=== PATIENT | female | born 1975 | race Two or more races ===

== ENCOUNTER 2024-05-31 19:11 | Emergency (ER) | payer MEDICAID, SELFPAY ==
[2024-05-31 19:12] VITALS: BMI 36.6
--- NOTE | 2024-05-31 19:15 | EKG_ITS ---
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
[2024-05-31 19:55] VITALS: BP 122/57; PULSE 69; RESP 19; TEMP 37; O2SAT 98
--- NOTE | 2024-05-31 20:05 | XR_ITS ---
Examination: PA lateral chest 2 views Technique: Upright PA lateral chest 2 views Exam date and time: May 31, 20242021 hrs. Indications: Chest pain today. Findings: Normal heart size. Lungs are clear. Osseous structures are intact Impression: No active disease
--- NOTE | 2024-05-31 20:05 | PD.EDRME ---
Rapid Medical Screening Exam RME Arrival date/time: 05/31/24 19:11 48-year-old female presents emergency department complaining of chest pain and chest pressure with cough that been ongoing for 1 week. Chief Complaint: General Adult/Misc Complain Time Seen by Provider: 05/31/24 20:00 Vital signs: Vital Signs Temperature 98.6 F 05/31/24 19:55 Pulse Rate 69 05/31/24 19:55 Respiratory Rate 19 05/31/24 19:55 Blood Pressure 122/57 L 05/31/24 19:55 Pulse Oximetry (%) 98 05/31/24 19:55 Oxygen Delivery Method Room Air 05/31/24 19:55 Vital signs reviewed by provider: Yes
[2024-05-31 20:33] LABS: Collection Type, Urine Clean Catch
[2024-05-31 20:34] LABS: Basophils # (Auto) 0.1 Thou/mm3 (0.0-0.2); Basophils % (Auto) 0 % (0-2.5); Eosinophils # (Auto) 0.8 Thou/mm3 (0.0-0.5); Eosinophils % (Auto) 6 % (0-10); Hematocrit 34.8 % (36.0-46.0); Hemoglobin 10.8 g/dL (12.0-16.0); Immature Granulocytes % (Auto) 0 % (0-0); Immature Granulocytes Auto 0.03 Thou/mm3 (0.00-0.00); Lymphocytes # (Auto) 4.7 Thou/mm3 (1.0-4.8); Lymphocytes % (Auto) 31 % (10-50); Mean Corpuscular Hemoglobin 23.5 pg (25.0-35.0); Mean Corpuscular Volume 76 fL (80-100); Monocytes # (Auto) 0.7 Thou/mm3 (0.0-0.8); Monocytes % (Auto) 5 % (0-12); Neutrophils # (Auto) 8.6 Thou/mm3 (1.8-7.7); Neutrophils % (Auto) 58 % (37-80); Nucleated Red Blood Cell % 0 /100 WBC (0); Platelet Count 419 Thou/mm3 (140-440); RDW Standard Deviation 42.1 fL (36.4-46.3); Red Blood Count 4.59 Miln/mm3 (4.00-5.20); White Blood Count 14.8 Thou/mm3 (3.6-11.0)
[2024-05-31 20:37] LABS: Bilirubin,Urine Negative (Negative); Blood,Urine Negative (Negative); Clarity,Urine Clear (Clear/Hazy); Color,Urine Lt-Yellow (Lt Yel-Yel); Glucose, Urine Negative (Negative); Ketones,Urine Negative (Negative); Leukocyte Esterase,Urine Negative (Negative); Nitrite,Urine Negative (Negative); Protein,Urine Trace (Neg - Trace); RBC,Urine 5 /hpf (0-3); Squamous Epithelial Cell,Urine 1 /hpf (0-5); WBC,Urine 1 /hpf (0-5)
[2024-05-31 20:46] LABS: Amphetamine/Methamp Scrn,U Negative (Negative); Barbiturate Screen,Urine Negative (Negative); Benzodiazepines Screen,Urine Negative (Negative); Benzoylecgonine Screen, Ur Negative (Negative); Fentanyl Screen,Urine Negative (Negative); Opiate Screen,Urine Negative (Negative); THC Screen,Urine Negative (Negative)
[2024-05-31 20:51] LABS: INR 1.1 (0.9-1.3); Partial Thromboplastin Time 29.1 Seconds (22.0-36.0); Prothrombin Time 11.5 Seconds (9.0-12.2)
[2024-05-31 20:53] LABS: B-Type Natriuretic Peptide < 20 pg/mL (0-100)
[2024-05-31 20:54] LABS: Alanine Aminotransferase 68 U/L (10-49); Albumin, Serum 4.7 gm/dL (3.5-5.0); Albumin/Globulin Ratio 1.2 (1.2-2.2); Alkaline Phosphatase 137 U/L (46-116); Anion Gap 6 (7-16); Aspartate Amino Transferase 64 U/L (0-34); BUN/Creatinine Ratio 22 Ratio (12-20); Bilirubin,Total 0.3 mg/dL (0.3-1.2); Blood Urea Nitrogen 13 mg/dL (9-23); Calcium 10.2 mg/dL (8.3-10.6); Calcium (Corrected) 10.2 mg/dL (8.5-10.1); Carbon Dioxide 27.2 mMol/L (20.0-31.0); Chloride 105 mMol/L (98-107); Creatinine (Component) 0.6 mg/dL (0.6-1.3); Estimated Creatinine Clearance 117.5 mL/min (>60); Globulin 3.9 gm/dL (2.3-3.5); Glucose 107 mg/dL (74-106); Magnesium 2.3 mg/dL (1.6-2.6); Osmolality,Calculated 275 (275-295); Potassium 4.4 mMol/L (3.4-5.1); Sodium 138 mMol/L (136-145); Total Protein 8.6 gm/dL (5.7-8.2); Troponin I < 0.002 ng/mL (0.0-0.045); eGFR > 60 See Note
[2024-05-31 21:18] VITALS: BP 113/53; PULSE 73; RESP 17; TEMP 37; O2SAT 96
--- NOTE | 2024-05-31 22:19 | EDNOTE_ITS ---
<Statement entered by Abby Ponce MD - 06/08/24 17:45> As co-signing physician, I was present and available for consult prn. I concur with the plan and care as documented by the midlevel provider. ED General RME/HPI General Chief complaint: General Adult/Misc Complain Stated complaint: COUGHING, CHEST AREA PAIN, LOWER BACK PAIN Time Seen by Provider: 05/31/24 20:00 Arrival date/time: 05/31/24 19:11 This is a 48-year-old female that comes in with complaints of cough since March. Patient states that she was given antibiotics, a Z-Chandana and promethazine. Patient states that the cough still has not gone away. Patient was also diagnosed with a ear infection at that time. Patient no longer has complaints of ear pain but complains of a sore throat, cough, and congestion. Patient also complains of left flank pain that got worse today. Patient denies any urinary symptoms. Patient denies fever, chills, nausea, vomiting, diarrhea. Patient denies any past medical history. RME / HPI RME / HPI narrative: 05/31/24 19:11 48-year-old female presents emergency department complaining of chest pain and chest pressure with cough that been ongoing for 1 week. Related Data Previous Rx's ?Medication ?Instructions ?Recorded acetaminophen 300 mg-codeine 30 mg 1 tab PO Q6H PRN pain #20 tabs 11/06/22 tablet albuterol sulfate 90 mcg/actuation 2 puff inhalation Q6H PRN 05/31/24 aerosol inhaler shortness of breath or wheezing #8.5 grams ibuprofen 800 mg tablet 800 mg PO Q8H PRN pain #14 tabs 05/31/24 Allergies Allergy/AdvReac Type Severity Reaction Status Date / Time latex Allergy Mild SKIN TURNS Verified 11/06/22 07:18 RED, RASH Review of Systems Review of Systems Systems Reviewed: All systems reviewed, normal except as documented Past Medical History Past Medical History NEUROLOGIC: Negative Neurological Disorders CARDIAC: Negative Cardiac Disorders or Congestive Heart Failure RESPIRATORY: Negative Chronic Obstructive Pulmonary Disease (COPD) or Asthma GASTROINTESTINAL: Negative Gastrointestinal Disorders GENITOURINARY: Negative Genitourinary Disorders or Renal Disease REPRODUCTIVE: Positive Previous Pregnancies ENDOCRINE: Negative Endocrine Disorders, Diabetes Mellitus Type 1 or Diabetes Mellitus Type 2 HEMATOLOGIC: Negative Blood Disorders or Sickle Cell Disease Social History SMOKING STATUS: Never smoker Travel History EBOLA RISK: No ED Exam General General appearance: Present alert and in no apparent distress Head Head exam: Present atraumatic Eye Eye exam: Present normal appearance, PERRL and EOMI ENT ENT exam: Present normal exam, normal oropharynx and mucous membranes moist Neck Neck exam: Present normal inspection, full ROM and trachea midline Chest Chest inspection: Present normal inspection and symmetric chest wall rise Respiratory Respiratory exam: Present normal lung sounds bilaterally Cardiovascular Cardiovascular exam: Present regular rate, normal rhythm and normal heart sounds Abdominal Exam Abdominal exam: Present soft and other (No pain to light palpation, cva tenderness to left flank area ) Extremities Exam Extremities exam: Present normal inspection and full ROM Back Exam Back exam: Present normal inspection and full ROM Neurological Exam Neurological exam: Present alert, oriented X3 and CN II-XII intact Psychiatric Psychiatric exam: Present normal affect and normal mood Skin Skin exam: Present warm, dry, intact and normal color Course Quality Measures none Orders Category Date Time Status Bedside COVID-19 Antigen Test NOW Care 05/31/24 20:05 Completed Bedside Influenza A&B Antigen Test NOW Care 05/31/24 20:05 Completed EKG (ED ONLY) *Do not use* NOW Care 05/31/24 19:[address] abdomen pelvis wo con Stat Exams 05/31/24 22:28 Completed EKG (ED Only) Stat Exams 05/31/24 19:15 Draft XR chest 2V Stat Exams 05/31/24 20:05 Completed B-Type Natriuretic Peptide Stat Lab 05/31/24 20:12 Completed CBC Stat Lab 05/31/24 20:12 Completed Comprehensive Metabolic Panel Stat Lab 05/31/24 20:12 Completed Drug Screen,Urine Stat Lab 05/31/24 20:21 Completed Magnesium Stat Lab 05/31/24 20:12 Completed Partial Thromboplastin Time Stat Lab 05/31/24 20:12 Completed Prothrombin Time with INR Stat Lab 05/31/24 20:12 Completed Strep A Rapid Stat Lab 05/31/24 22:15 Completed Troponin I Stat Lab 05/31/24 20:12 Completed Urinalysis Stat Lab 05/31/24 20:21 Completed Acetaminophen Tab [Tylenol ES Tab] Med 05/31/24 23:14 Discontinued 1,000 mg PO X1 ONE Ketorolac Inj [Toradol Inj] Med 05/31/24 22:29 Discontinued 60 mg IM X1 ONE Promethazine/Dextromethorph [Phenergan Dm Syrup] Med 05/31/24 23:14 Discontinued 5 ml PO X1 ONE Vital Signs Vital signs: Vital Signs Temperature 98.6 F 05/31/24 19:55 Pulse Rate 69 05/31/24 19:55 Respiratory Rate 19 05/31/24 19:55 Blood Pressure 122/57 L 05/31/24 19:55 Pulse Oximetry (%) 98 05/31/24 19:55 Oxygen Delivery Method Room Air 05/31/24 19:55 Procedures -ED EKG Interpretation #1: Date of EK05/31/24 Time of EK:53 Rate: 70 Interpretation: Interpreted by me (sinus rhythm ) EKG Impression: No ectopy, Normal QRS and Normal intervals MDM Patient data External records reviewed:: [facility] previous records Clinical information provided by:: patient Social determinants that could affect healthcare access:: none Patient has the following chronic illnesses:: none How is presenting disease/condition affected by chronic disease/condition?: no chronic disease Evaluation data The following diagnostics were reviewed and interpreted by me:: lab results, radiology exam(s) and EKG tracing(s) Lab and/or radiology exams considered but not ordered:: none Interpretation Summary: none Medications Medications considered but not ordered:: none Medication administrations:: Medication Administration History Discontinued Medications Acetaminophen (Acetaminophen 500 Mg Tablet) 1,000 mg PO X1 ONE Stop: 05/31/24 23:15 Last Admin: 05/31/24 23:33 Dose: 1,000 mg Documented By: KEN Ketorolac Tromethamine (Ketorolac Inj 60 Mg/2 Ml Vial) 60 mg IM X1 ONE Stop: 05/31/24 22:30 Last Admin: 05/31/24 23:21 Dose: 60 mg Documented By: KEN Promethazine HCl/Dextromethorphan (Promethazine/Dm Syrup 5 Ml Dose) 5 ml PO X1 ONE; Protocol Stop: 05/31/24 23:15 Last Admin: 05/31/24 23:33 Dose: 5 ml Documented By: KEN garcia Consultations Consultation(s) initiated? (list below): No Diagnosis Differential Diagnosis ED Complaint MDM: viral illness, pneumonia, reactive airway disease Most likely diagnosis given after review of the tests above:: reactive airway disease Admission Indicated Admission indicated?: not indicated Explain why admission is indicated or not indicated:: pt better Admission Request Was there a request for admission?: No Disposition Plan Disposition Plan: Discharge Discharge Attestation Discharge Attestation: The patient and all family members were given an opportunity to ask questions and understood the discharge instructions. Discharge instructions specifically effects, indications for sooner follow up or return to the emergency department, and the expected course of current diagnosis. Patient condition: Stable Medical Decision Making MDM Narrative MDM Narrative: chest x ray: Findings: Normal heart size. Lungs are clear. Osseous structures are intact Impression: No active disease ct abdomen and pelvis: Findings: Diffuse fatty infiltration throughout the liver no focal liver lesions No gallstones No pancreatic or adrenal mass No renal or ureteral calculi, no hydronephrosis Aorta normal size Normal appendix No bowel obstruction No diverticulitis Anteverted uterus No bladder mass or bladder calculi The osseous structures are intact Impression: No renal or ureteral calculi, no hydronephrosis Normal appendix No bladder mass or bladder calculi Labs showed a white count of 14.8, hemoglobin and hematocrit of 10.8 and 34.8. PT PT/INR negative comprehensive metabolic panel showed elevated LFTs AST of 64 ALT of 68 and alk phos of 137. Urine shows RBCs in urine. Patient's COVID and influenza were negative. Strep was negative Patient was given Toradol for pain along with tylenol. Pt given promethazine. She reports feeling better. Pt told to folloow up with primary provider in 1-2 days. Differential Diagnosis Differential Diagnosis: viral illness, pneumonia, reactive airway disease Lab Data 05/31/24 20:12 05/31/24 20:12 Labs: Lab Results 05/31/24 05/31/24 05/31/24 Range/Units 20:12 20:21 22:15 WBC 14.8 H (3.6-11.0) Thou/mm3 RBC 4.59 (4.00-5.20) Miln/mm3 Hgb 10.8 L (12.0-16.0) g/dL Hct 34.8 L (36.0-46.0) % MCV 76 L (80-100) fL MCH 23.5 L (25.0-35.0) pg MCHC 31.0 (31.0-37.0) g/dl RDW Std Deviation 42.1 (36.4-46.3) fL Plt Count 419 (140-440) Thou/mm3 Neut % (Auto) 58 (37-80) % Lymph % (Auto) 31 (10-50) % [place] % (Auto) 5 (0-12) % Eos % (Auto) 6 (0-10) % Baso % (Auto) 0 (0-2.5) % Neut # (Auto) 8.6 H (1.8-7.7) Thou/mm3 Lymph # (Auto) 4.7 (1.0-4.8) Thou/mm3 [place]ick # (Auto) 0.7 (0.0-0.8) Thou/mm3 Eos # (Auto) 0.8 H (0.0-0.5) Thou/mm3 Baso # (Auto) 0.1 (0.0-0.2) Thou/mm3 Immature Gran # (Auto) 0.03 H (0.00-0.00) Thou/mm3 Absolute Nucleated RBC 0.00 (0.00-0.00) Thou/mm3 Immature Gran % 0 (0-0) % Nucleated RBC % 0 (0) /100 WBC PT 11.5 (9.0-12.2) Seconds INR 1.1 (0.9-1.3) APTT 29.1 (22.0-36.0) Seconds Sodium 138 (136-145) mMol/L Potassium 4.4 (3.4-5.1) mMol/L Chloride 105 (98-107) mMol/L Carbon Dioxide 27.2 (20.0-31.0) mMol/L Anion Gap 6 L (7-16) BUN 13 (9-23) mg/dL Creatinine 0.6 (0.6-1.3) mg/dL Estim Creat Clear Calc 117.5 (>60) mL/min eGFR > 60 (60 - ) See Note BUN/Creatinine Ratio 22 H (12-20) Ratio Glucose 107 H (74-106) mg/dL Calculated Osmolality 275 (275-295) Calcium 10.2 (8.3-10.6) mg/dL Corrected Calcium 10.2 H (8.5-10.1) mg/dL Magnesium 2.3 (1.6-2.6) mg/dL Total Bilirubin 0.3 (0.3-1.2) mg/dL AST 64 H (0-34) U/L ALT 68 H (10-49) U/L Alkaline Phosphatase 137 H (46-116) U/L Troponin I < 0.002 (0.0-0.045) ng/mL B-Natriuretic Peptide < 20 (0-100) pg/mL Total Protein 8.6 H (5.7-8.2) gm/dL Albumin 4.7 (3.5-5.0) gm/dL Globulin 3.9 H (2.3-3.5) gm/dL Albumin/Globulin Ratio 1.2 (1.2-2.2) Ur Collection Type Clean Catch Urine Color Lt-Yellow (Lt Yel-Yel) Urine Clarity Clear (Clear/Hazy) Urine pH 6.0 (5.0-7.0) Ur Specific [place] 1.030 (1.001-1.035) Urine Protein Trace (Neg - Trace) Urine Glucose (UA) Negative (Negative) Urine Ketones Negative (Negative) Urine Blood Negative (Negative) Urine Nitrite Negative (Negative) Urine Bilirubin Negative (Negative) Urine Urobilinogen (Auto) 2.0 (0.0-1.0) mg/dL Ur Leukocyte Esterase Negative (Negative) Urine RBC 5 H (0-3) /hpf Urine WBC 1 (0-5) /hpf Ur Squamous Epith Cells 1 (0-5) /hpf Urine Bacteria None (None) Urine Opiates Screen Negative (Negative) Urine Fentanyl Screen Negative (Negative) Ur Barbiturates Screen Negative (Negative) U Amphetamin/Meth Scrn Negative (Negative) U Benzodiazepines Scrn Negative (Negative) U Cocaine Metab Screen Negative (Negative) U Marijuana (THC) Screen Negative (Negative) Group A Strep Rapid Negative (Negative) Discharge Plan Plan Patient Disposition: HOME (Self Care) Patient condition on transfer: Stable Prescriptions/Referrals Prescriptions/Med Rec: New ibuprofen 800 mg tablet 800 mg PO Q8H PRN (Reason: pain) Qty: 14 0RF albuterol sulfate 90 mcg/actuation HFA aerosol inhaler 2 puff inhalation Q6H PRN (Reason: shortness of breath or wheezing) Qty: 8.5 0RF No Action acetaminophen-codeine 300-30 mg tablet 1 tab PO Q6H MDD 4 PRN (Reason: pain) Qty: 20 0RF Referrals: Vinning,Amita, PA-C [Primary Care Provider] - In 1 week Problem List Clinical Impression: Upper respiratory infection, viral, Hematuria, RAD (reactive airway disease) Patient/Caregiver Discharge Instructions Discharge Activity: activity as tolerated Education Materials: ED Hematuria, ED URI, Viral, No Abx (Adult) Additional Instructions: Plenty of fluids. Can use inhaler as directed. Follow-up with primary provider in 1 to 2 days. Come back to the emergency room if symptoms change or worsen. Print Language: Wallisian Stand Alone Forms: Anabel Award Info., Patient Portal Info Letter PA/PRESS MACHINE FEEDER Supervising Physician PA/PRESS MACHINE FEEDER Supervising Physician: shannan
--- NOTE | 2024-05-31 22:28 | XR_ITS ---
Examination: CT abdomen and pelvis without contrast. Coronal 3-D reconstructions. Sagittal 2-D reconstructions. Date and time of exam:May 31, 2024 11:11 PM Indications: Lower back chest and flank pain 2 weeks CTDI: vol (mGy): 14.11 DLP: (mGycm): 820 Technique: Axial images of the abdomen have been obtained, 3 mm slice thickness Intravenous contrast material has not been administered. Low dose protocols were performed. One or more of the following dose reduction techniques were used; automated exposure control, adjustment of the mA and/or KV according to patient size, use of iterative reconstruction technique. Findings: Diffuse fatty infiltration throughout the liver no focal liver lesions No gallstones No pancreatic or adrenal mass No renal or ureteral calculi, no hydronephrosis Aorta normal size Normal appendix No bowel obstruction No diverticulitis Anteverted uterus No bladder mass or bladder calculi The osseous structures are intact Impression: No renal or ureteral calculi, no hydronephrosis Normal appendix No bladder mass or bladder calculi
[2024-05-31 22:30] LABS: Strep A Rapid Negative (Negative)
[2024-05-31] MEDS: KETOROLAC INJ 60 MG/2 ML VIAL IM (23:21)
[2024-05-31] MEDS: ACETAMINOPHEN 500 MG TABLET 1000 MG PO (23:33)
[2024-05-31] MEDS: PROMETHAZINE/DM SYRUP 5 ML DOSE PO (23:33)
== END 2024-06-01 00:53 | disposition home or self-care (01) ==
PROVIDERS: Emergency Provider Emergency Medicine; PCP Physician Assistant
DX: J06.9 Acute upper respiratory infection, unspecified (principal); J45.909 Unspecified asthma, uncomplicated; R31.9 Hematuria, unspecified; R10.9 Unspecified abdominal pain; M54.50 Low back pain, unspecified
CPT/HCPCS: 36415; 71046; 74176; 80053; 80307; 81001; 83735; 83880; 84484; 85025; 85610; 85730; 87400; 87651; 87811; 93005; 96372; 99284; J1885; A9270

== ENCOUNTER → 2024-06-05 | Outpatient (CLI) | payer MEDICAID, SELFPAY ==
--- NOTE | 2024-06-05 11:15 | XR_ITS ---
Examination: Screening digital mammography, bilateral Computer aided detection 3-D breast Tomosynthesis, bilateral Date and time of exam: June 05, 2024 1114 hours INDICATIONS: Family history, mother, breast cancer Indication: Screening Technique: Nonmagnified MLO, CC views of the breasts to been obtained, reconstructed from 3-D Tomosynthesis images. R2 computer aided detection program utilized for evaluation of suspicious masses and/or abnormal calcifications. 3-D Tomosynthesis images obtained. Findings: The breasts are heterogeneously dense, which may obscure small masses Grouped microcalcification are present in the outer left breast on the spot compression CC view No suspicious masses Impression: BI-RADS Category 0: Incomplete: Need additional imaging evaluation Recommend spot magnification compression views upper outer quadrant left breast to exclude suspicious microcalcifications
== END | disposition home or self-care (01) ==
LOC: CDIM 11:04
PROVIDERS: Referring Provider Nurse Practitioner Family; Visit Provider Nurse Practitioner Family
DX: Z12.31 Encounter for screening mammogram for malignant neoplasm of breast (principal); R92.8 Other abnormal and inconclusive findings on diagnostic imaging of breast; R92.0 Mammographic microcalcification found on diagnostic imaging of breast
CPT/HCPCS: 77063; 77067

== ENCOUNTER → 2024-08-12 | Outpatient (CLI) | payer MEDICAID, SELFPAY ==
--- NOTE | 2024-08-12 09:15 | XR_ITS ---
Examination: Breast ultrasound, unilateral, left complete Date and time of exam: August 12, 2024 1045 hours INDICATIONS: Mammogram June 05, 2024 microcalcifications upper outer left breast, suspicious Technique: Real-time pop scale ultrasonographic imaging performed left breast including all 4 quadrants as well as nipple retroareolar and axillary region. Findings: Retroareolar cyst 4 x 2 x 4 mm No solid nodules IMPRESSION: BI-RADS Category 2: Benign findings
--- NOTE | 2024-08-12 10:15 | XR_ITS ---
Examination: Diagnostic digital mammography, unilateral, left Computer aided detection 3-D breast Tomosynthesis, unilateral Date and time of exam: August 12, 2024 1032 hours INDICATIONS: Grouped microcalcifications outer left breast on mammogram June 05, 2024 Technique: Nonmagnified MLO, CC views of the left breast have been obtained, reconstructed from 3-D Tomosynthesis images. R2 computer aided detection program utilized for evaluation of suspicious masses and/or abnormal calcifications. 3-D Tomosynthesis images obtained. Findings: The breast is heterogeneously dense, which may obscure small masses Suspicious microcalcifications are confirmed outer left breast Impression: BI-RADS category 4: Suspicious for malignancy Suspicious microcalcifications are confirmed outer left breast on the follow-up imaging, biopsy is needed to exclude breast carcinoma, these calcifications are amenable to stereotactic breast biopsy for diagnosis
== END | disposition home or self-care (01) ==
LOC: CDIM 10:21
PROVIDERS: Referring Provider Nurse Practitioner Family; Visit Provider Nurse Practitioner Family
DX: R92.342 Mammographic extreme density, left breast (principal); R92.0 Mammographic microcalcification found on diagnostic imaging of breast; N60.02 Solitary cyst of left breast
CPT/HCPCS: 76641; 77061; 77065; G0279

== ENCOUNTER → 2024-09-15 | Outpatient (CLI) | payer MEDICAID, SELFPAY ==
[2024-09-14 09:30] LABS: Basophils % (Auto) 0 % (0-2.5); Eosinophils # (Auto) 0.6 Thou/mm3 (0.0-0.5); Eosinophils % (Auto) 5 % (0-10); Hemoglobin 10.7 g/dL (12.0-16.0); Immature Granulocytes % (Auto) 0 % (0-0); Immature Granulocytes Auto 0.03 Thou/mm3 (0.00-0.00); Lymphocytes # (Auto) 3.5 Thou/mm3 (1.0-4.8); Lymphocytes % (Auto) 29 % (10-50); Mean Corpuscular HGB Conc 31.5 g/dl (31.0-37.0); Mean Corpuscular Hemoglobin 23.5 pg (25.0-35.0); Mean Corpuscular Volume 75 fL (80-100); Monocytes # (Auto) 0.5 Thou/mm3 (0.0-0.8); Monocytes % (Auto) 4 % (0-12); Neutrophils # (Auto) 7.4 Thou/mm3 (1.8-7.7); Neutrophils % (Auto) 62 % (37-80); Nucleated Red Blood Cell % 0 /100 WBC (0); Platelet Count 363 Thou/mm3 (140-440); RDW Standard Deviation 41.8 fL (36.4-46.3); Red Blood Count 4.55 Miln/mm3 (4.00-5.20); White Blood Count 12.1 Thou/mm3 (3.6-11.0)
[2024-09-14 09:37] LABS: INR 1.1 (0.9-1.3); Partial Thromboplastin Time 29.3 Seconds (22.0-36.0)
--- NOTE | 2024-09-15 08:30 | XR_ITS ---
Examination: Stereotactic guided vacuum assisted left breast biopsy with clip placement Specimen radiograph Date and time of exam:September 15, 2024 0933 hours INDICATIONS: Mammogram August 12, 2024 grouped microcalcifications suspicious outer left breast Timeout performed, documenting correct patient, order, referring physician, patient's site and reason for procedure, allergies to medications Informed consent provided. Time out performed Technique: The lesion left breast was localized with a stereotactic apparatus. Local anesthesia was obtained after prepping the skin at the entrance site and applying sterile drape Maximum sterile barrier technique. 6 core biopsies were then obtained, vacuum assisted, stereotactically guided, at the lesion site. Specimens appear adequate. Stereotactic breast marker was introduced at the lesion site Estimated blood loss 2 cc. Patient tolerated the procedure well and appeared in satisfactory and stable condition at completion of the procedure Pathology report to follow Impression: Successful stereotactic breast biopsy as described above. Specimen radiograph contains the biopsied suspicious microcalcifications.
== END | disposition home or self-care (01) ==
LOC: CDIM 09-16 08:29
PROVIDERS: Radiology Diagnostic Radiology; PCP Nurse Practitioner Family; Referring Provider Nurse Practitioner Family; Visit Provider Nurse Practitioner Family
DX: D24.2 Benign neoplasm of left breast (principal); R92.0 Mammographic microcalcification found on diagnostic imaging of breast; N60.12 Diffuse cystic mastopathy of left breast; Z01.812 Encounter for preprocedural laboratory examination
CPT/HCPCS: 19081; 36415; 85025; 85610; 85730; A4648; A4649

== ENCOUNTER 2024-12-29 01:48 | Emergency (ER) | payer MEDICAID, SELFPAY ==
[2024-12-29 01:58] VITALS: BP 131/62; PULSE 60; RESP 18; TEMP 36.9; O2SAT 95; BMI 36.6
--- NOTE | 2024-12-29 02:06 | EDNOTE_ITS ---
ED Skin Abcess FB-RME/HPI General Chief complaint: Skin/Abscess/Foreign Body Stated complaint: INSECT BITE TO UPPER LEG Time Seen by Provider: 12/29/24 01:57 Source: patient, RN notes reviewed and old records reviewed Arrival date/time: 12/29/24 01:48 Mode of arrival: ambulatory Limitations: no limitations RME / HPI RME / HPI narrative: 49yof present to ED for sorpion sting to left thigh that occurred at home this evening. Patient c/o localized pain and itching to left thigh. No tongue/throat swelling, shortness of breath or nausea/vomiting reported. 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 Related Data Previous Rx's ?Medication ?Instructions ?Recorded acetaminophen 300 mg-codeine 30 mg 1 tab PO Q6H PRN pa in #20 tabs 11/06/22 tablet albuterol sulfate 90 mcg/actuation 2 puff inhalation Q 6H PRN 05/31/24 aerosol inhaler shortness of breath or wheez ing #8.5 grams ibuprofen 800 mg tablet 800 mg PO Q8H PRN pain #14 t abs 05/31/24 diphenhydramine HCl 25 mg capsule 50 mg (2 x 25 mg) PO TID PRN 12/29/24 (Benadryl) itching #30 caps ibuprofen 600 mg tablet 600 mg PO Q6H PRN pain #20 t abs 12/29/24 Allergies Allergy/AdvReac Type Severity Reaction Status Date / Time latex Allergy Mild SKIN TURNS Verified 12/29/24 01:49 RED, RASH Review of Systems Review of Systems Systems Reviewed: All systems reviewed, normal except as documented ENT Ears, Nose, Mouth, and Throat: Denies throat swelling and Denies tongue swelling Cardiovascular Cardiovascular: Denies dyspnea Respiratory Respiratory: Denies dyspnea Gastrointestinal Gastrointestinal: Denies nausea and Denies vomiting Integumentary/Breasts Skin/Breast: Reports pruritus, Reports rash and Reports skin pain Allergic/Immunologic Allergic/Immunologic: Denies throat swelling and Denies tongue swelling Past Medical History Past Medical History GASTROINTESTINAL: Positive Obesity Surgical History OTHER SURGICAL HX: denies pshx Social History SMOKING STATUS: Never smoker SUBSTANCE USE: does not use ALCOHOL: Never ED Exam General Limitations: Present no limitations General appearance: Present alert and in no apparent distress Head Head exam: Present atraumatic and normocephalic Eye Eye exam: Present normal appearance, PERRL and EOMI ENT ENT exam: Present normal exam, normal oropharynx (airway patent) and mucous membranes moist Neck Neck exam: Present normal inspection and full ROM Chest Chest inspection: Present normal inspection and symmetric chest wall rise Respiratory Respiratory exam: Present normal lung sounds bilaterally; Absent respiratory distress, wheezes or stridor Cardiovascular Cardiovascular exam: Present regular rate and normal rhythm Extremities Exam Extremities exam: Present normal inspection and full ROM Neurological Exam Neurological exam: Present alert and oriented X3 Psychiatric Psychiatric exam: Present normal affect and normal mood Skin Skin exam: Present other (Small localized area of erythema to left anterior thigh) Course Quality Measures none Orders Category Date Time Status DiphenhydrAMINE [Benadryl] Med 12/29/24 02:05 Discontinued 50 mg PO X1 ONE HYDROcodone*/APAP 7.5/325 [[place] 7.5/325] Med 12/29/24 02:05 Discontinued 1 tab PO X1 ONE Ketorolac Inj [Toradol Inj] Med 12/29/24 02:05 Discontinued 30 mg IM X1 ONE Vital Signs Vital signs: Vital Signs Temperature 98.5 F 12/29/24 01:58 Pulse Rate 60 12/29/24 01:58 Respiratory Rate 18 12/29/24 01:58 Blood Pressure 131/62 H 12/29/24 01:58 Pulse Oximetry (%) 95 12/29/24 01:58 Oxygen Delivery Method Room Air 12/29/24 01:58 Skin / Abscess / Foreign Body MDM Narrative MDM Narrative:: 49yof present to ED for sorpion sting to left thigh that occurred at home this evening. Patient c/o localized pain and itching to left thigh. No tongue/throat swelling, shortness of breath or nausea/vomiting reported. 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 Patient seen and treated for scorpion sting. Patient has localized reaction to left thigh. No systemic symptoms. No evidence of anaphylaxis. Home care discussed. Stable for dc, RTED precautions given. Patient data External records reviewed:: [facility] previous records (05/31/24 ED visit for hematuria) Clinical information provided by:: patient Social determinants that could affect healthcare access:: other (specify) (poor access to healthcare) Patient has the following chronic illnesses:: obesity How is presenting disease/condition affected by chronic disease/condition?: uneffected by Evaluation data The following diagnostics were reviewed and interpreted by me:: other (specify) (none) Lab and/or radiology exams considered but not ordered:: none Interpretation Summary: na Medications / Prescriptions Medications or Prescriptions considered but not ordered:: no antibiotics recommended at this time Medication administrations:: Medication Administration History Discontinued Medications Hydrocodone Bitart/Acetaminophen (Hydrocodone/[place] 7.5/325 Tablet) 1 tab PO X1 ONE Stop: 12/29/24 02:06 Last Admin: 12/29/24 02:17 Dose: Not Given Documented By: ESPERANZA Non-Admin Reason: Patient Refused Diphenhydramine HCl (Diphenhydramine 25 Mg Capsule) 50 mg PO X1 ONE Stop: 12/29/24 02:06 Last Admin: 12/29/24 02:12 Dose: 50 mg Documented By: ESPERANZA Ketorolac Tromethamine (Ketorolac Inj 60 Mg/2 Ml Vial) 30 mg IM X1 ONE Stop: 12/29/24 02:06 Last Admin: 12/29/24 02:17 Dose: Not Given Documented By: ESPERANZA Non-Admin Reason: Patient Refused above medication administered in ED Consultations Consultation(s) initiated? (list below): No Diagnosis Skin/Abscess Differential Diagnosis: viral exanthem, urticaria, cellulitis, ecz carlos, insect bites and contact dermatitis Most likely diagnosis given after review of the tests above:: scorpion sting Admission Indicated Admission indicated?: not indicated Admission Request Was there a request for admission?: No Disposition Plan Disposition Plan: Discharge Discharge Attestation Discharge Attestation: The patient and all family members were given an opportunity to ask questions and understood the discharge instructions. Discharge instructions specifically effects, indications for sooner follow up or return to the emergency department, and the expected course of current diagnosis. Patient condition: Stable Discharge Plan Plan Patient Disposition: HOME (Self Care) Patient condition on transfer: Stable Prescriptions/Referrals Prescriptions/Med Rec: New diphenhydramine HCl [Benadryl] 25 mg capsule 50 mg PO TID PRN (Reason: itching) Qty: 30 0RF ibuprofen 600 mg tablet 600 mg PO Q6H PRN (Reason: pain) Qty: 20 0RF No Action acetaminophen-codeine 300-30 mg tablet 1 tab PO Q6H MDD 4 PRN (Reason: pain) Qty: 20 0RF ibuprofen 800 mg tablet 800 mg PO Q8H PRN (Reason: pain) Qty: 14 0RF albuterol sulfate 90 mcg/actuation HFA aerosol inhaler 2 puff inhalation Q6H PRN (Reason: shortness of breath or wheezing) Qty: 8.5 0RF Problem List Clinical Impression: Scorpion sting Patient/Caregiver Discharge Instructions Education Materials: ED Insect Sting, Local Reaction Print Language: German Stand Alone Forms: Anabel Award Info., Patient Portal Info Letter PA/TELETYPE OPERATOR Supervising Physician PA/TELETYPE OPERATOR Supervising Physician: Adriel
== END 2024-12-29 02:23 | disposition home or self-care (01) ==
LOC: SERX 02:27
PROVIDERS: Emergency Provider Emergency Medicine; PCP Physician Assistant
DX: T63.2X1A Toxic effect of venom of scorpion, accidental (unintentional), initial encounter (principal); Y92.009 Unspecified place in unspecified non-institutional (private) residence as the place of occurrence of the external cause
CPT/HCPCS: 99282; A9270

== ENCOUNTER 2025-03-14 13:17 | Emergency (ER) | payer MEDICAID, SELFPAY ==
[2025-03-14 14:11] VITALS: BP 108/62; PULSE 61; RESP 18; TEMP 36.9; O2SAT 97
--- NOTE | 2025-03-14 14:47 | XR_ITS ---
Examination: CTA chest, with intravenous contrast. CTA abdomen, with intravenous contrast. CTA pelvis, with intravenous contrast. 2-D sagittal and coronal reconstructions. 3-D reconstructions. Date and time of exam: March 14, at 2025, 1702 hrs. Indications: Pleuritic chest pain abdominal pain radiating to the lower back beginning 3 weeks ago CTDI vol (mgy) 17.8 DLP (MGycm) 1009 Technique: Multiple CTA images, 2.0 mm slice thickness, obtained chest, abdomen, pelvis, with the high-resolution 64 slice scanner. 100 cc Isovue-370 is administered intravenously. Sagittal and coronal 2-D reconstructions are obtained. 3-D reconstructions, angiographic images are obtained. 3-D postprocessing, including vascular maximum intensity projections. Low dose protocols were performed. One or more of the following dose reduction techniques were used; automated exposure control, adjustment of the mA and/or KV according to patient size, use of iterative reconstruction technique. Findings: No thoracic aortic aneurysm dilatation or dissection. No pulmonary artery filling defects. No paratracheal tracheobronchial or bronchopulmonary adenopathy. 4 mm pulmonary nodule right upper lobe, 2 mm pulmonary nodule in the lingular segment. No lobar pneumonia or pulmonary edema No visualized liver or splenic lesion No gallstones Gastric mucosa appears thickened. No pancreatic or adrenal mass. No renal or ureteral calculi, no hydronephrosis Abdominal aorta is normal in size. Normal appendix No bowel obstruction No pelvic mass Urinary bladder intact No spondylolisthesis Impression: No thoracic aortic aneurysmal dilatation or dissection. Negative for pulmonary artery emboli. Small noncalcified pulmonary nodules, advise 6 month follow-up CT chest without contrast No pneumonia or pulmonary edema. Gastritis pattern. No renal or ureteral calculi, no hydronephrosis Normal appendix. No bowel obstruction diverticulitis or free air. No significant thoracic or lumbar degenerative disc disease
--- NOTE | 2025-03-14 14:47 | XR_ITS ---
Examination: PA lateral chest 2 views Technique: Upright PA lateral chest 2 views Date and time: March 14, 2025, 1559 hrs. Indications: Upper back pain chest pain beginning 2 weeks ago. Findings: Minor prominence left ventricle. No pneumonia or pulmonary edema. The osseous structures are intact. Impression: No active disease.
--- NOTE | 2025-03-14 15:04 | EDNOTE_ITS ---
<Statement entered by Abby Ponce MD - 03/15/25 14:39> As co-signing physician, I was present and available for consult prn. I concur with the plan and care as documented by the midlevel provider. ED Back Injury Pain RME/HPI General Chief Complaint: Back Pain/Injury Stated Complaint: L) BACK PAIN Time Seen by Provider: 03/14/25 14:25 Arrival date/time: 03/14/25 13:17 RME / HPI RME / HPI Narrative: 49-year-old patient with no previous health history presents emergency department with complaint of left upper back pain that is worse with deep inspiration and with palpation of left upper back. She rates her pain currently as a 10 out of 10. She denies shortness of breath with or without activity she denies fever she denies sick contact she denies recent weight loss or weight gain. Patient also states pain is worse with bending her head down to her chin. Related Data Previous Rx's ?Medication ?Instructions ?Recorded acetaminophen 300 mg-codeine 30 mg 1 tab PO Q6H PRN pa in #20 tabs 11/06/22 tablet albuterol sulfate 90 mcg/actuation 2 puff inhalation Q 6H PRN 05/31/24 aerosol inhaler shortness of breath or wheez ing #8.5 grams ibuprofen 800 mg tablet 800 mg PO Q8H PRN pain #14 t abs 05/31/24 diphenhydramine HCl 25 mg capsule 50 mg (2 x 25 mg) PO TID PRN 12/29/24 (Benadryl) itching #30 caps ibuprofen 600 mg tablet 600 mg PO Q6H PRN pain #20 t abs 12/29/24 hydrocodone 5 mg-acetaminophen 325 1 tab PO Q8H PRN pa in #10 tabs 03/14/25 mg tablet hydrocodone 5 mg-acetaminophen 325 1 tab PO Q8H pain 5 days #15 tabs 03/14/25 mg tablet hydrocodone 5 mg-acetaminophen 325 1 tab PO Q8H pain 5 days #15 tabs 03/14/25 mg tablet ibuprofen 600 mg tablet 600 mg PO QID PRN pain #30 t abs 03/14/25 Allergies Allergy/AdvReac Type Severity Reaction Status Date / Time latex Allergy Mild SKIN TURNS Verified 03/14/25 13:20 RED, RASH Review of Systems Review of Systems Systems Reviewed: All systems reviewed, normal except as documented Constitutional Constitutional: Reports system reviewed and no additional complaints, except as documented ENT Ears, Nose, Mouth, and Throat: Reports system reviewed and no additional complaints, except as documented Cardiovascular Cardiovascular: Reports system reviewed and no additional complaints, except as documented Respiratory Respiratory: Reports system reviewed and no additional complaints, except as documented Gastrointestinal Gastrointestinal: Reports system reviewed and no additional complaints, except as documented Genitourinary Genitourinary: Reports system reviewed and no additional complaints, except as documented Musculoskeletal Musculoskeletal: Reports system reviewed and no additional complaints, except as documented ED Exam General General appearance: Present alert and in no apparent distress Head Head exam: Present atraumatic and normocephalic Eye Eye exam: Present normal appearance and PERRL ENT ENT exam: Present normal exam and normal oropharynx Neck Neck exam: Present normal inspection and full ROM Chest Chest inspection: Present normal inspection and symmetric chest wall rise Respiratory Respiratory exam: Present normal lung sounds bilaterally; Absent respiratory distress, wheezes, stridor, accessory muscle use or prolonged expiratory phase Cardiovascular Cardiovascular exam: Present regular rate and normal rhythm Extremities Exam Extremities exam: Present normal inspection and full ROM Neurological Exam Neurological exam: Present alert and oriented X3 Skin Skin exam: Present warm and normal color Course Quality Measures none Orders Category Date Time Status Bedside COVID-19 Antigen Test NOW Care 03/14/25 14:47 Completed Bedside COVID-19 Antigen Test NOW Care 03/14/25 16:[address] Screening NOW Care 03/14/25 14:[address] angio chest abdomen pelvis Stat Exams 03/14/25 14:47 Completed XR chest 2V Stat Exams 03/14/25 14:47 Completed CBC Stat Lab 03/14/25 15:14 Completed CMP [Comprehensive Metabolic Panel] Stat Lab 03/14/25 15:14 Completed Urinalysis, C/S if Indicated Stat Lab 03/14/25 15:40 Completed Morphine* Inj Med 03/14/25 14:47 Discontinued 4 mg IM X1 ONE Ondansetron Odt [Zofran Odt] Med 03/14/25 14:47 Discontinued 4 mg PO X1 ONE Vital Signs Vital signs: Vital Signs Temperature 98.5 F 03/14/25 14:11 Pulse Rate 61 03/14/25 14:11 Respiratory Rate 18 03/14/25 14:11 Blood Pressure 108/62 03/14/25 14:11 Pulse Oximetry (%) 97 03/14/25 14:11 Oxygen Delivery Method Room Air 03/14/25 14:11 Back Pain / Injury MDM Narrative MDM Narrative:: 49-year-old patient presents emergency department with complaint of left upper back pain for the past 2 weeks. Patient states pain is worse with palpation of her left upper back. She also complains of pain with deep inspiration she denies cough or shortness of breath she denies tobacco or drug use. She rates her pain currently as a 10 out of 10. She denies numbness and tingling to bilateral upper or lower extremity. Patient data External records reviewed:: None Clinical information provided by:: patient Social determinants that could affect healthcare access:: none Patient has the following chronic illnesses:: n/a How is presenting disease/condition affected by chronic disease/condition?: no chronic disease Evaluation data The following diagnostics were reviewed and interpreted by me:: lab results, radiology exam(s) and other (specify) (COVID SWABS) Lab and/or radiology exams considered but not ordered:: Labs and radiology was considered and ordered Interpretation Summary: Unremarkable labs and imaging studies Medications / Prescriptions Medications or Prescriptions considered but not ordered:: Medications considered and ordered Medication administrations:: Medication Administration History Discontinued Medications Morphine Sulfate (Morphine Sulf Inj 4 Mg/Ml Vial) 4 mg IM X1 ONE Stop: 03/14/25 14:48 Last Admin: 03/14/25 16:45 Dose: 4 mg Documented By: WILLY Ondansetron HCl (Ondansetron Odt 4 Mg Tabrap) 4 mg PO X1 ONE; Protocol Stop: 03/14/25 14:48 Last Admin: 03/14/25 16:44 Dose: 4 mg Documented By: WILLY Per above Consultations Consultation(s) initiated? (list below): No Diagnosis Differential diagnosis back pain/injury: lumbar radiculopathy, sciatica, strain of lumbar region, thoracic back pain, AAA and discitis Most likely diagnosis given after review of the tests above:: Thoracic back pain, Admission Indicated Admission indicated?: not indicated Explain why admission is indicated or not indicated:: No signs of sepsis, labs and imaging study remarkable Admission Request Was there a request for admission?: No Disposition Plan Disposition Plan: Discharge Discharge Attestation Discharge Attestation: The patient and all family members were given an opportunity to ask questions and understood the discharge instructions. Discharge instructions specifically effects, indications for sooner follow up or return to the emergency department, and the expected course of current diagnosis. Patient condition: Stable Discharge Plan Plan Patient Disposition: HOME (Self Care) Prescriptions/Referrals Prescriptions/Med Rec: New hydrocodone-acetaminophen 5-325 mg tablet 1 tab PO Q8H MDD 10 PRN (Reason: pain) Qty: 10 0RF hydrocodone-acetaminophen 5-325 mg tablet 1 tab PO Q8H MDD 10 5 Days Qty: 15 0RF ibuprofen 600 mg tablet 600 mg PO QID PRN (Reason: pain) Qty: 30 0RF hydrocodone-acetaminophen 5-325 mg tablet 1 tab PO Q8H MDD 10 5 Days Qty: 15 0RF No Action acetaminophen-codeine 300-30 mg tablet 1 tab PO Q6H MDD 4 PRN (Reason: pain) Qty: 20 0RF ibuprofen 800 mg tablet 800 mg PO Q8H PRN (Reason: pain) Qty: 14 0RF albuterol sulfate 90 mcg/actuation HFA aerosol inhaler 2 puff inhalation Q6H PRN (Reason: shortness of breath or wheezing) Qty: 8.5 0RF diphenhydramine HCl [Benadryl] 25 mg capsule 50 mg PO TID PRN (Reason: itching) Qty: 30 0RF ibuprofen 600 mg tablet 600 mg PO Q6H PRN (Reason: pain) Qty: 20 0RF Referrals: No Primary/Family,Physician [Primary Care Provider] - In 1 week Problem List Clinical Impression: Pleuritis, Thoracic back pain, Pain in left lumbar region of back Patient/Caregiver Discharge Instructions Education Materials: How Your Back Works, Understanding the Pain Response, ED Back Pain (Acute or Chronic), ED Pain, Acute, Uncertain Cause Print Language: [place] Stand Alone Forms: Anabel Award Info., Patient Portal Info Letter
[2025-03-14 15:25] LABS: Basophils # (Auto) 0.1 Thou/mm3 (0.0-0.2); Basophils % (Auto) 0 % (0-2.5); Eosinophils # (Auto) 0.6 Thou/mm3 (0.0-0.5); Eosinophils % (Auto) 5 % (0-10); Hematocrit 36.7 % (36.0-46.0); Hemoglobin 11.4 g/dL (12.0-16.0); Immature Granulocytes Auto 0.04 Thou/mm3 (0.00-0.00); Lymphocytes # (Auto) 3.5 Thou/mm3 (1.0-4.8); Lymphocytes % (Auto) 27 % (10-50); Mean Corpuscular HGB Conc 31.1 g/dl (31.0-37.0); Mean Corpuscular Hemoglobin 24.2 pg (25.0-35.0); Mean Corpuscular Volume 78 fL (80-100); Monocytes # (Auto) 0.7 Thou/mm3 (0.0-0.8); Monocytes % (Auto) 6 % (0-12); Neutrophils # (Auto) 8.1 Thou/mm3 (1.8-7.7); Neutrophils % (Auto) 62 % (37-80); Nucleated Red Blood Cell # 0.00 Thou/mm3 (0.00-0.00); Nucleated Red Blood Cell % 0 /100 WBC (0); Platelet Count 355 Thou/mm3 (140-440); RDW Standard Deviation 45.1 fL (36.4-46.3); Red Blood Count 4.71 Miln/mm3 (4.00-5.20); White Blood Count 13.1 Thou/mm3 (3.6-11.0)
[2025-03-14 15:50] LABS: Alanine Aminotransferase 38 U/L (10-49); Albumin, Serum 4.5 gm/dL (3.5-5.0); Albumin/Globulin Ratio 1.4 (1.2-2.2); Alkaline Phosphatase 116 U/L (46-116); Anion Gap 9 (7-16); Aspartate Amino Transferase 37 U/L (0-34); BUN/Creatinine Ratio 16 Ratio (12-20); Bilirubin,Total 0.3 mg/dL (0.3-1.2); Blood Urea Nitrogen 11 mg/dL (9-23); Calcium 9.5 mg/dL (8.3-10.6); Calcium (Corrected) 9.5 mg/dL (8.5-10.1); Carbon Dioxide 28.5 mMol/L (20.0-31.0); Chloride 104 mMol/L (98-107); Creatinine (Component) 0.7 mg/dL (0.6-1.3); Estimated Creatinine Clearance 96.0 mL/min (>60); Globulin 3.3 gm/dL (2.3-3.5); Glucose 90 mg/dL (74-106); Osmolality,Calculated 280 (275-295); Potassium 3.9 mMol/L (3.4-5.1); Sodium 141 mMol/L (136-145); Total Protein 7.8 gm/dL (5.7-8.2); eGFR > 60 See Note
[2025-03-14 15:57] LABS: Collection Type, Urine Voided
[2025-03-14 16:24] LABS: Bilirubin,Urine Negative (Negative); Blood,Urine Negative (Negative); Clarity,Urine Clear (Clear/Hazy); Color,Urine Lt-Yellow (Lt Yel-Yel); Culture Indicated,Urine Not Indicated; Glucose, Urine Negative (Negative); Ketones,Urine Negative (Negative); Leukocyte Esterase,Urine Negative (Negative); Nitrite,Urine Negative (Negative); PH,Urine 7.0 (5.0-7.0); Protein,Urine Negative (Neg - Trace); RBC,Urine 1 /hpf (0-3); Specific Gravity,Urine 1.023 (1.001-1.035); Squamous Epithelial Cell,Urine 4 /hpf (0-5); Urobilinogen,Urine Negative mg/dL (0.0-1.0); WBC,Urine < 1 /hpf (0-5)
[2025-03-14] MEDS: ONDANSETRON ODT 4 MG TABRAP PO (16:44)
[2025-03-14] MEDS: MORPHINE SULF INJ 4 MG/ML VIAL IM (16:45)
== END 2025-03-14 19:54 | disposition home or self-care (01) ==
PROVIDERS: Physician Assistant; Emergency Provider Emergency Medicine
DX: M54.6 Pain in thoracic spine (principal); M54.50 Low back pain, unspecified; R09.1 Pleurisy
CPT/HCPCS: 36415; 71046; 71275; 74174; 80053; 81001; 85025; 87400; 87811; 96372; 99284; A4649; J2270; Q0162; Q9967